=== PATIENT | male | born 1950 | race African-American/Black ===

== ENCOUNTER 2017-01-27 19:53 | Inpatient (IN) | payer MEDICARE, OTHER ==
[~2017-01-27] VITALS: Ht 172.7 cm; Wt 83.9 kg
[2017-01-27] MEDS ORDERED: ACETAMINOPHEN ES 500 MG TABLET ONE (20:07)
[2017-01-27 20:15] LABS: BASOPHILS % (AUTO) 0.4 % (0.0-2.0); EOSINOPHILS # (AUTO) 0.1 /CMM (0.0-0.7); EOSINOPHILS % (AUTO) 1.4 % (0.0-6.0); HEMATOCRIT 46 % (39-51); HEMOGLOBIN 15.3 g/dL (13.5-17.5); LYMPHOCYTES # (AUTO) 2.6 /CMM (0.8-4.8); LYMPHOCYTES % (AUTO) 32.6 % (20.0-44.0); MEAN CORPUSCULAR HEMOGLOBIN 30 PG (26.0-33.0); MEAN CORPUSCULAR HGB CONC 33 g/dl (31.0-36.0); MEAN CORPUSCULAR VOLUME 91 fL (80-96); MONOCYTES # (AUTO) 0.6 /CMM (0.1-1.30); MONOCYTES % (AUTO) 7.4 % (2.0-12.0); NEUTROPHILS # (AUTO) 4.8 /CMM (1.8-8.9); NEUTROPHILS % (AUTO) 58.2 % (43.0-81.0); PLATELET COUNT (AUTO) 259 /CMM (150-450); RDW COEFFICIENT OF VARIATION 12.4 (11.5-15.0); RED BLOOD CELL COUNT(AUTO) 5.11 MIL/uL (4.5-6.0); WHITE BLOOD COUNT (AUTO) 8.1 K/uL (4.3-11.0)
[2017-01-27 20:25] LABS: CALCIUM, SERUM 9.1 mg/dL (8.5-10.1); CREATININE 1.2 mg/dL (0.6-1.3); POTASSIUM 3.7 mmol/L (3.5-5.1)
[2017-01-27] MEDS ORDERED: IV NS 0.9% 1,000 ML BAG IV ONE (20:30)
[2017-01-27] MEDS ORDERED: ACETAMINOPHEN ES 500 MG TABLET PO ONE (20:30)
[2017-01-27 20:34] LABS: TROPONIN I 0.039 ng/mL (0.00-0.056)
[2017-01-27] MEDS ORDERED: ASPIRIN 325 MG TABLET ONE (21:06)
[2017-01-27] MEDS ORDERED: NITROGLYCERIN PACKET 1 GM PACKET ONE (21:08)
[2017-01-27] MEDS ORDERED: ASPIRIN 325 MG TABLET PO ONE (21:30)
[2017-01-27] MEDS ORDERED: NITROGLYCERIN PACKET 1 GM PACKET TOP ONE (21:30)
[2017-01-27] MEDS ORDERED: LISI1TAB9 PO (22:35)
[2017-01-27] MEDS ORDERED: COLE3.75 PO (22:35)
[2017-01-27] MEDS ORDERED: ACETAMINOPHEN 325 MG TABLET PO PRN (23:00)
[2017-01-27] MEDS ORDERED: MAGNESIUM HYDROXIDE 30 ML UDC PO PRN (23:00)
[2017-01-27] MEDS ORDERED: NITROGLYCERIN 0.4 MG/TAB BOTTLE SL PRN (23:00)
[2017-01-27] MEDS ORDERED: HYDROCODONE/APAP 10/325MG 1 EA TABLET PO PRN (23:00)
[2017-01-27] MEDS ORDERED: Z GUARD REMEDY 2 OZ OINT TP PRN (23:00)
[2017-01-27] MEDS ORDERED: ONDANSETRON HCL/PF 4 MG/2 ML VIAL IVP PRN (23:00)
[2017-01-27 23:15] VITALS: BP 137/79
[2017-01-28] VITALS (8 sets, daily range): BP systolic 101–140; BP diastolic 64–82
[2017-01-28] MEDS ORDERED: HYDROCODONE/APAP 5/325MG 1 EACH TABLET ONE (05:26)
[2017-01-28 07:14] LABS: BASOPHILS % (AUTO) 0.5 % (0.0-2.0); EOSINOPHILS # (AUTO) 0.2 /CMM (0.0-0.7); EOSINOPHILS % (AUTO) 2.3 % (0.0-6.0); HEMATOCRIT 41 % (39-51); HEMOGLOBIN 13.7 g/dL (13.5-17.5); LYMPHOCYTES # (AUTO) 2.9 /CMM (0.8-4.8); LYMPHOCYTES % (AUTO) 41.8 % (20.0-44.0); MEAN CORPUSCULAR HEMOGLOBIN 30 PG (26.0-33.0); MEAN CORPUSCULAR HGB CONC 33 g/dl (31.0-36.0); MEAN CORPUSCULAR VOLUME 91 fL (80-96); MONOCYTES # (AUTO) 0.8 /CMM (0.1-1.30); MONOCYTES % (AUTO) 11.1 % (2.0-12.0); NEUTROPHILS # (AUTO) 3.1 /CMM (1.8-8.9); NEUTROPHILS % (AUTO) 44.3 % (43.0-81.0); PLATELET COUNT (AUTO) 231 /CMM (150-450); RDW COEFFICIENT OF VARIATION 13.2 (11.5-15.0); RED BLOOD CELL COUNT(AUTO) 4.52 MIL/uL (4.5-6.0)
[2017-01-28 07:47] LABS: TROPONIN I 0.032 ng/mL (0.00-0.056)
[2017-01-28 07:51] LABS: CALCIUM, SERUM 8.9 mg/dL (8.5-10.1); MAGNESIUM 2.2 mg/dL (1.8-2.4); PHOSPHORUS 3.8 mg/dL (2.5-4.9); POTASSIUM 4.4 mmol/L (3.5-5.1)
[2017-01-28 08:04] LABS: THYROID STIMULATING HORMONE 2.413 uIU/mL (0.358-3.74)
[2017-01-28] MEDS: ASPIRIN 81 MG TAB.CHEW PO SCH (09:00)
[2017-01-28] MEDS ORDERED: COLESEVELAM HCL PO SCH (09:00)
[2017-01-28] MEDS: HYDROCHLOROTHIAZIDE 25 MG TABLET PO SCH (09:45)
[2017-01-28] MEDS: LISINOPRIL (10MG) 10 MG TABLET PO SCH (09:45)
[2017-01-28] MEDS: HYDROCODONE/APAP 5/325MG 1 EACH TABLET PO PRN ×2 (12:32)
[2017-01-28] MEDS: MAG HYDROX/AL HYDROX/SIMETH 30 ML UDC PO PRN (20:28)
[2017-01-28] MEDS ORDERED: ATORVASTATIN 10 MG TABLET PO SCH (22:00)
[2017-01-29 08:00] VITALS: BP 120/71
[2017-01-29] MEDS: ASPIRIN 81 MG TAB.CHEW PO SCH (08:46)
[2017-01-29] MEDS: HYDROCHLOROTHIAZIDE 25 MG TABLET PO SCH (08:47)
[2017-01-29] MEDS: LISINOPRIL (10MG) 10 MG TABLET PO SCH (08:47)
[2017-01-29] MEDS: MAG HYDROX/AL HYDROX/SIMETH 30 ML UDC PO PRN (14:01)
[2017-01-29 16:00] VITALS: BP 124/71
== END 2017-01-29 17:45 | disposition home or self-care (01) | DRG 74 ==
LOC: ER 19:55 → TELE 22:18 → MED 01-28 09:32
PROVIDERS: ADMIT Nurse Practitioner Acute Care; ATTEND Nurse Practitioner Acute Care
DX: G90.8 Other disorders of autonomic nervous system (principal); E78.5 Hyperlipidemia, unspecified; W07.XXXA Fall from chair, initial encounter; R07.9 Chest pain, unspecified; I10 Essential (primary) hypertension; R73.9 Hyperglycemia, unspecified; M19.011 Primary osteoarthritis, right shoulder; Y93.9 Activity, unspecified; Y92.009 Unspecified place in unspecified non-institutional (private) residence as the place of occurrence of the external cause; S43.101A Unspecified dislocation of right acromioclavicular joint, initial encounter
CPT/HCPCS: 36415; 70450-TC; 71010-TC; 73060-TC; 73200-TC; 80048-TC; 80061-TC; 80305; 83735-TC; 84100-TC; 84443-TC; 84484-TC; 85025-TC; 87081-TC; 93307-TC; 93880-TC; 95819-TC; A4565; J7030